=== PATIENT | male | born 1995 | race African-American/Black ===

== ENCOUNTER 2022-07-15 01:35 | Emergency (ER) | payer BC ==
[~2022-07-15] VITALS: Ht 167.6 cm; Wt 67.9 kg
[2022-07-15 01:45] VITALS: BP 120/84
== END 2022-07-15 02:40 | disposition left against medical advice (07) ==
LOC: ER 01:35
DX: Z53.21 Procedure and treatment not carried out due to patient leaving prior to being seen by health care provider (principal)